=== PATIENT | female | born 1965 | race Caucasian/White ===

== ENCOUNTER → 2019-09-25 | Outpatient (CLI) | payer BC ==
--- NOTE | 2019-09-25 23:35 | CONS ---
CONSULTATION DATE OF SERVICE: 09/25/2019 This patient is a 54-year-old lady who has been evaluated in the sleep center for possible obstructive sleep apnea-hypopnea syndrome. HISTORY OF PRESENT ILLNESS/SLEEP-WAKE EVALUATION: Patient's usual sleep schedule from 11:30, 12:30 midnight until 10 a.m., 1 p.m. She does have problems with falling asleep, although no TV in bedroom. She usually sleeps on the side position. She wakes up from sleep up to 5 times with nocturia. She has a significant amount of jerking movements of her extremities and also of her head. She has loud snoring, episodes of stopped breathing during the sleep, awakenings also with dry mouth, heartburn, gasping for air, restless legs, sleep talking, sweating. In the morning, patient wakes up tired, has difficulties to pay attention, falling asleep during the day, worries about her sleep, has problems with memory and concentration. [place] Sleepiness Scale significantly increased to 16. PAST MEDICAL HISTORY: Positive for hypertension, asthma, acid reflux, peripheral neuropathy, swelling of the legs. MEDICATIONS: Albuterol, candesartan, famotidine, ibuprofen, montelukast, olmesartan, oxycodone, spironolactone, Symbicort. SOCIAL HISTORY: Positive for smoking in the past, about half pack a day. Quit more than 25 years ago. Alcohol consumption occasional. FAMILY HISTORY: Hypertension, back problems, stroke, cancer, during the sleep by her father. REVIEW OF SYSTEMS: Multiple awakenings from sleep, sleepiness during the day. [place] Sleepiness Scale is 16. Patient takes up to 5 naps during the day. PHYSICAL EXAMINATION: GENERAL: A lady without distress. VITAL SIGNS: BP 118/70, HR 92, RR 18, height 5 feet 6-1/2 inches, weight 272, BMI 43.2, temperature 98.0, oxygen saturation on room air 96%. HEENT: PERRLA, EOMI. Oropharynx extremely low position of soft palate. Mallampati 4. Wide neck 16-1/2 inches in circumference. NECK: Supple, no JVD. Thyroid is not palpable. LUNGS: Clear to percussion and to auscultation. Good air exchange. No wheezing or rhonchi. HEART: S1, S2 regular. No murmurs, gallops, or rubs. ABDOMEN: Obese. EXTREMITIES: 1+ bilateral ankle edema. HAND PLEATER: Awake, alert, and oriented X3. Cranial nerves 2 to 7 intact. There is no fasciculation or atrophy. noted. No focal deficits observed. IMPRESSION: 1. Snoring, multiple awakenings from sleep with nocturia, extremely low position of soft palate, wide neck, excessive daytime sleepiness, obstructive sleep apnea- hypopnea syndrome. 2. Obesity, body mass index 43.2. 3. Significant amount of movements at night including jerking movements and head movements, possible restless legs and periodic limb movements. 4. History of sleep talking. 5. Asthma. 6. Acid reflux. 7. History of peripheral neuropathy. 8. Swelling of the legs. PLAN: 1. Polysomnography for evaluation of patient's breathing during sleep. 2. CPAP/BiPAP titration if sleep study confirms obstructive sleep apnea-hypopnea syndrome. 3. Preferable position during sleep on the side. 4. No driving if patient feels any sleepiness. 5. I will see patient for follow up visit to explain results of testing and following plan. 6. If after treatment of obstructive sleep apnea, patient will continue to have symptoms of excessive daytime sleepiness, she is a candidate for multiple sleep latency test for objective evaluation of her symptoms of excessive daytime sleepiness. Thank you very much for referring this patient for consultation. Sincerely, Herb Mcpherson MD, PhD, FAASM Diplomat of [employer] [employer] [facility] [place] MMODL / [facility]: [id number] /
== END | disposition home or self-care (01) ==
LOC: SLEEP 15:32
PROVIDERS: ATTEND Internal Medicine
DX: G47.33 Obstructive sleep apnea (adult) (pediatric) (principal); E66.9 Obesity, unspecified; Z68.41 Body mass index [BMI] 40.0-44.9, adult; J45.909 Unspecified asthma, uncomplicated; K21.9 Gastro-esophageal reflux disease without esophagitis; G62.9 Polyneuropathy, unspecified; R22.40 Localized swelling, mass and lump, unspecified lower limb
CPT/HCPCS: 99211